=== PATIENT | female | born 1995 | race Caucasian/White ===

== ENCOUNTER 2018-04-03 13:19 | Emergency (ER) | payer BC ==
--- OUTSIDE RECORDS SUMMARY | 2018-04-03 13:35 | XMS REPORT | Continuity of Care Document ---
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 [address] PayID: [id number] JERRY Alaniz [id number] Advance Directives Description No Information Available Problems Description No Information Family History Description No Information Available Social History Type Date Description Comments Sex Unknown Allergies, Adverse Reactions, Alerts Date Description Reaction Status Severity Comments 03/01/2018 Sulfa Active 03/01/2018 Latex Active Medications Medication Date Status Form Strength Qnty SIG Indications Ordering Provider Escitalopram Active Tablets 20mg 30tabs 1 by mouth Kristie Oxalate 000 every day EBONY Castillo Topiramate Active Tablets 25mg 30tabs 1 tab by Kristie 000 mouth once EBONY Castillo daily Active Tablets Unknown 000 Mirena (52 MG) Active IUD 20mcg/24HR Inserted Unknown 000 October 2016 Immunizations CPT Code Status Date Vaccine Lot # [id number] Refused 03/01/2018 Influenza Virus Vaccine, Quadrivalent, 3 Yr > Quad , Preserv Free Vital Signs Date Vital Result Comment 03/29/2018 10:05am Weight 120.00 lb Weight 54.432 kg BP Systolic 102 mmHg BP Diastolic 68 mmHg Heart Rate 84 /min Body Temperature 98.4 F Respiratory Rate 16 /min 03/01/2018 9:07am Weight 117.00 lb Weight 53.071 kg BP Systolic 102 mmHg BP Diastolic 74 mmHg Heart Rate 80 /min Body Temperature 98.8 F Height 64 inches 5'4" BMI (Body Mass Index) 20.1 kg/m2 O2 % BldC Oximetry 98 % Results Test Date Facility Test Result H/L Range Note Laboratory test 03/29/2018 [facility] TSH (Thyroid < pending> finding [phone] Stim Horm) T3 Total <pending> Free T4 (Free Thyroxine) <pending> Vitamin D Total 25(Oh) <pending> Laboratory test finding 03/01/2018 In House Lab Strep Screen NEG (607)- - Procedures Description No Information Available Encounters Type Date Location Provider Dx Diagnosis Office Visit 03/01/2018 [facility] Kristie Jonathan, F43.10 Post- traumatic 9:00a CHEESEMAKER HELPER stress disorder, unspecified N83.209 Unspecified ovarian cyst, unspecified side J06.9 Acute upper respiratory infection, unspecified Plan of Treatment 03/29/2018 - Kristie Castillo, NPR53.83 Other fatigueRecommendations:Sleep hygiene -Sleep only long enough to feel rested and then get out of bed -Go to bed and get up at the same time every day -Do not try to force yourself to sleep. If you can't sleep, get out of bed and try again later. -Have coffee, tea, and other foods that have caffeine only in the morning -Avoidalcohol in the late afternoon, evening, and bedtime -Avoid smoking, especially in the evening -Keep your bedroom dark, cool, quiet, and free of reminders of work or other things that cause you stress -Solve problems you have before you go to bed -Exercise several days a week, but not right before bed -Avoid looking at phones or reading devices ("e-books") that give off light before bed. This can makeit harder to fall asleep. Other things that can improve sleep include: -Relaxation therapy, in whichyou focus on relaxing all the muscles in your body 1 by 1 - Working with a counselor or psychologist to deal with the problems that might be causing poor sleep -You should spend no more than 20 minutes lying in bed trying to fall asleep. -If you cannot fall asleep within 20 minutes, get up, go to another room and read or find another relaxing activity until you feel sleepy again. Activities such as eating, balancing your checkbook, doing housework, watching TV, or studying for a test, which "reward" you for staying awake, should be avoided. -When you start to feel sleepy, you can return to bed. If you cannot fall asleep in another 20 minutes, repeat the process. -Set an alarm clock and get up at the same time every day, including weekends. -Do not take a nap during the day.F43.10 Post-traumatic stress disorder, unspecifiedFollow up:1 month
--- NOTE | 2018-04-03 15:29 | UC ---
Headache HPI - HPI Summary HPI Summary: PT WITH KNOWN H/O MIGRAINES COMES IN WITH HEADACHE FOR 3 DAYS. NO RESPONSE TO TYLENOL, IBUPROFEN, IMITREX, FIORICET, INCREASED FLUID HYDRATION. PCP HAS REFERRED HER TO A HEADACHE SPECIALIST. SHE CAN NOT DESCRIBE THE PAIN. REPORTS PHOTOPHOBIA, PHONOPHOBIA AND NAUSEA. TAKES TOPAMAX DAILY FOR MIGRAINE PROPHYLAXIS WHICH USUALLY WORKS WELL. DENIES NUMBNESS, TINGLING, WEAKNESS. NO FEVER. NO NECK PAIN. - History Of Current Complaint Chief Complaint: UCHeadache Stated Complaint: HEADACHE Time Seen by Provider: 04/03/18 15:19 Hx Obtained From: Patient Hx Last Menstrual Period: iud Onset/Duration: Gradual Onset, Lasting Days, Still Present Onset Of Symptoms: Still Present Initially Headache Was: Moderate Currently Pain Is: Moderate Pain Intensity: 9 Pain Scale Used: 0-10 Numeric Timing: Constant Character: Unable To Describe Location of Headache: Frontal, Temporal Aggravating Factor(s): Bright Lights Allevating Factor(s): Nothing - Allergies/Home Medications Allergies/Adverse Reactions: Allergies Allergy/AdvReac Type Severity Reaction Status Date / Time latex Allergy Rash Verified 04/03/18 13:41 Sulfa (Sulfonamide Allergy anaph Verified 04/03/18 13:41 Antibiotics) Home Medications: Home Medications Escitalopram Oxalate [Lexapro 20 mg] 20 mg PO DAILY 04/03/18 [History Confirmed 04/03/18] Topamax 25 MG tab 50 mg PO DAILY 04/03/18 [History Confirmed 04/03/18] PMH/Surg Hx/FS Hx/Imm Hx Neurological History: Migraine Psychological History: Post Traumatic Stress Disorder - Surgical History Surgical History: Yes Surgery Procedure, Year, and Place: lapscopy pelvis area - Family History Known Family History: Positive: Non-Contributory - Social History Alcohol Use: None Substance Use Type: None Smoking Status (MU): Never Smoked Tobacco Review of Systems All Other Systems Reviewed And Are Negative: Yes Constitutional: Positive: Negative Eyes: Positive: Photophobia Respiratory: Positive: Negative Cardiovascular: Positive: Negative Gastrointestinal: Positive: Nausea Neurological: Positive: Headache Physical Exam Triage Information Reviewed: Yes Appearance: Well-Nourished, Pain Distress - MODERATE Vital Signs: Initial Vital Signs Temp 99.1 F 04/03/18 13:37 Pulse 78 04/03/18 13:37 Resp 18 04/03/18 13:37 BP 115/78 04/03/18 13:37 Pulse Ox 100 04/03/18 13:37 Vital Signs Reviewed: Yes Eyes: Positive: Conjunctiva Clear ENT: Positive: Hearing grossly normal Neck: Positive: Supple Respiratory: Positive: No respiratory distress, No accessory muscle use Cardiovascular: Positive: Pulses Normal Abdomen Description: Positive: Soft Musculoskeletal: Positive: No Edema Neurological: Positive: Alert Psychological: Positive: Age Appropriate Behavior Skin: Negative: Rashes Re-Evaluation - Re-Evaluation First Eval Re-Evaluation Time: 17:15 - SANTOS IMPROVED AFTER 1L NS, 8MG ZOFRAN, 30MG TORADOL AND 50MG BENADRYL. PT READY TO D/C HOME Change: Improved Headache Course/Dx - Differential Dx/Diagnosis Provider Diagnosis: Migraine Discharge - Sign-Out/Discharge Documenting (check all that apply): Patient Departure All imaging exams completed and their final reports reviewed: No Studies - Discharge Plan Condition: Stable Disposition: HOME Prescriptions: Ondansetron ODT TAB* [Zofran Odt TAB*] 4 mg PO Q8H PRN #12 tab.odt PRN Reason: Nausea/Vomiting Patient Education Materials: Migraine Headache (ED) Referrals: No Primary Care Phys,NOPCP [Primary Care Provider] - Additional Instructions: YOU FELT IMPROVED AFTER 1 L OF NORMAL SALINE, 8 MG ZOFRAN, 30 MG TORADOL, 50 MG BENADRYL. BE SURE TO STAY WELL-HYDRATED AND RESTED. FOLLOW-UP WITH YOUR HEADACHE SPECIALIST PLANNED. GO TO THE ED WITHOUT FAIL IF YOU HAVE RECURRENT SYMPTOMS. - Billing Disposition and Condition Condition: STABLE Disposition: Home
[2018-04-03] MEDS ORDERED: Ondansetron INJ* 2 MG/ML VIAL IV ONE (15:39)
[2018-04-03] MEDS ORDERED: diPHENhydraMINE IV* 50 MG/ML 1 ml VIAL (BENADRYL) IV ONE (15:39)
[2018-04-03] MEDS ORDERED: Ketorolac INJ* 30 MG/ML 1 ML VIAL IV PUSH ONE (15:40)
[2018-04-03] MEDS ORDERED: NS 0.9% 1000 ML* 1,000 ML IV SCH (15:45)
[2018-04-03 17:52] VITALS: BP 110/66
== END 2018-04-03 17:44 | disposition home or self-care (01) ==
LOC: UCEAST 13:19
DX: G43.909 Migraine, unspecified, not intractable, without status migrainosus (principal); Z88.2 Allergy status to sulfonamides; Z91.040 Latex allergy status
CPT/HCPCS: 96360; 96374; 96375; 99212; G0463; J1200; J1885; J2405

== ENCOUNTER 2018-06-13 15:30 | Emergency (ER) | payer BC ==
[2018-06-13 15:38] VITALS: BP 113/69
[2018-06-13] MEDS ORDERED: Albuterol 2.5 MG/3 ML NEB.SOL* (0.083%) INH ONE (16:03)
[2018-06-13] MEDS ORDERED: predniSONE TAB* 20 MG PO ONE (16:04)
--- NOTE | 2018-06-13 16:09 | UC ---
Shortness of Breath HPI - HPI Summary HPI Summary: 23-year-old woman comes in with a chief complaint of shortness breath. Patient reports she has allergies to wheat and 4 days ago is been exposed to eat and got hives all over she's been treating that with Benadryl which did help with the hives but she continued to be short of breath. She usually treats with albuterol and sometimes needs prednisone however her albuterol inhaler is empty. Shortness breath is worse with activity but with rest. She also reports some green sputum production. Feels her chest is heavy. Denies any history of poor embolus DVT. Denies any pedal edema. Reports a fever of 100.5 yesterday. - History of Current Complaint Chief Complaint: UCRespiratory Stated Complaint: RASH Time Seen by Provider: 06/13/18 15:55 Hx Last Menstrual Period: IUD - Allergy/Home Medications Allergies/Adverse Reactions: Allergies Allergy/AdvReac Type Severity Reaction Status Date / Time latex Allergy Rash Verified 06/13/18 15:38 Sulfa (Sulfonamide Allergy anaph Verified 06/13/18 15:38 Antibiotics) Home Medications: Home Medications Quetiapine Fumarate [Seroquel 50 mg tab] 25 mg PO DAILY 06/13/18 [History Confirmed 06/13/18] diphenhydrAMINE HCl [Benadryl Allergy 25 MG CAP] 25 mg PO Q8HR PRN 06/13/18 [ History Confirmed 06/13/18] PMH/Surg Hx/FS Hx/Imm Hx Previously Healthy: Yes Respiratory History: Asthma - Surgical History Surgical History: Yes Surgery Procedure, Year, and Place: lapscopy pelvis area - Family History Known Family History: Positive: Non-Contributory - Social History Alcohol Use: None Substance Use Type: None Smoking Status (MU): Never Smoked Tobacco Review of Systems All Other Systems Reviewed And Are Negative: Yes Constitutional: Positive: Fever Skin: Positive: Negative Eyes: Positive: Negative ENT: Negative: Sore Throat Respiratory: Positive: Shortness Of Breath Cardiovascular: Positive: Chest Pain Gastrointestinal: Positive: Negative Motor: Positive: Negative Neurovascular: Positive: Negative Musculoskeletal: Positive: Negative. Negative: Edema Neurological: Positive: Negative Psychological: Positive: Negative Is Patient Immunocompromised?: No Physical Exam Triage Information Reviewed: Yes Appearance: No Pain Distress, Well-Nourished, Ill-Appearing - mild Vital Signs: Initial Vital Signs Temp 98.7 F 06/13/18 15:32 Pulse 86 06/13/18 15:32 Resp 18 06/13/18 15:32 BP 113/69 06/13/18 15:32 Pulse Ox 100 06/13/18 15:32 Vital Signs Reviewed: Yes Eye Exam: Normal Eyes: Positive: Conjunctiva Clear ENT: Positive: TMs normal, Tonsillar swelling - 2+ b/l, Uvula midline Neck exam: Normal Neck: Positive: Supple Respiratory: Positive: Lungs clear, Normal breath sounds, No respiratory distress Cardiovascular: Positive: RRR Musculoskeletal Exam: Normal Musculoskeletal: Positive: Strength Intact, ROM Intact, No Edema Neurological Exam: Normal Neurological: Positive: Alert, Muscle Tone Normal Psychological Exam: Normal Psychological: Positive: Age Appropriate Behavior Skin Exam: Normal Shortness of Breath Dx - Course Course Of Treatment: Patient Name: FRANCIS ANTONIO Medical Record#: [id number]. Ordering Physician: Gallo Cunningham MD Acct.#: [id number]. : 1995 Age: 23 Sex: F Location: [facility]. Exam Date: 160 ADM Status: PRE ER. Order Information: CHEST PA LAT 2 VWS. Accession Number: [id number]. CPT: 10741. INDICATION: Shortness of breath x5 days. COMPARISON: None. TECHNIQUE: PA and lateral views of the chest were obtained. FINDINGS: The heart and mediastinum are normal in size and contour. The lungs are grossly clear. There is no evidence of large pleural effusion. There is a mild degree of curvature at the mid-level thoracic spine. There is no radiographic evidence of free air beneath the diaphragm. IMPRESSION: No radiographic evidence of acute cardiopulmonary disease. . <Electronically signed by Reginaldo Up MD in OV> 06/13/18 1492. I discussed the x-ray revealed port with the patient. After the albuterol nebulizer in the prednisone by mouth patient feels quite a bit better. She is able ambulate in the clinic. Because of the green sputum in the severity of her shortness of breath and in the face of an upper respiratory tract infection we'll treat with amoxicillin. We'll continue the prednisone and also sent a prescription for albuterol inhaler. Patient follow- up with her primary care doctor she'll get reevaluated sooner if worse or any questions concerns. - Differential Dx/Diagnosis Provider Diagnosis: Dyspnea, Allergic reaction, Bronchitis Discharge - Sign-Out/Discharge Documenting (check all that apply): Patient Departure All imaging exams completed and their final reports reviewed: Yes - Discharge Plan Condition: Stable Disposition: HOME Prescriptions: Albuterol HFA INHALER* [Ventolin HFA Inhaler*] 2 puff INH Q4H PRN #1 mdi PRN Reason: Wheezing Amoxicillin PO (*) [Amoxicillin 875 MG (*)] 875 mg PO BID #20 tab predniSONE TAB* [Deltasone 20 MG TAB*] 40 mg PO DAILY #8 tab Patient Education Materials: Acute Bronchitis (ED), Dyspnea (ED), General Allergic Reaction (ED) Referrals: [facility] [Outside] Additional Instructions: FOLLOW UP WITH YOUR DOCTOR IF NOT COMPLETELY IMPROVED. GET RECHECKED FOR ANY WORSENING OF YOUR CONDITION; SHORTNESS OF BREATH, FEVER, CHEST PAIN, YOU FEEL ILL OR QUESTIONS OR CONCERNS. - Billing Disposition and Condition Condition: STABLE Disposition: Home
--- OUTSIDE RECORDS SUMMARY | 2018-06-13 17:28 | XMS REPORT | Continuity of Care Document ---
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 [address] PayID: [id number] JERRY Alaniz [id number] Advance Directives Description No Information Available Problems Description No Information Family History Description No Information Available Social History Type Date Description Comments Sex Unknown Lives With grandparents Occupation Currently Working [employer] Tobacco Use Start: Unknown Never Smoked Cigarettes ETOH Use Denies alcohol use Recreational Drug Use Denies Drug Use Allergies, Adverse Reactions, Alerts Date Description Reaction Status Severity Comments 03/01/2018 Sulfa Active 03/01/2018 Latex Active Medications Medication Date Status Form Strength Qnty SIG Indications Ordering Provider Seroashley 05/03/ Active Tablets 25mg 30tab take 1 tablet Kristie 2019 s by mouth daily EBONY Castillo at bedtime for posttraumatic stress disorder Topiramate 04/02/ Active Tablets 50mg 30tab 1 by mouth G43.011 Kristie 2018 s before bed for EBONY Casitllo migraine prevention Rizatriptan 04/02/ Active Tablets 10mg 18tab dissolve 1 G43.011 Shawnti Benzoate 2018 Dispers s tablet in R. Storm, mouth at onset PROJECTOR BOOTH OPERATOR-C of migraine repeat in 2 hours if needed Fioricet 04/02/ Active Capsules 50-300-40 10cap one by mouth G43.011 Shawnti 2018 mg s every 8 hours R. Storm, if needed for PROJECTOR BOOTH OPERATOR-C migraine Escitalopram 00// Active Tablets 20mg 30tab 1 by mouth Kristie Oxalate 0000 s every day EBONY Castillo / Active Tablets Unknown 0000 Mirena (52 MG) / Active IUD 20mcg/24H Inserted October Unknown 2016 Topamax / Active Tablets 50mg Unknown 0000 Vitamin D3 / Active Chewtabs 400Unit Unknown 0000 Topiramate / Hx Tablets 25mg 30tab 1 tab by mouth Kristie 0000 - s once daily EBONY Castillo 2017 Immunizations CPT Code Status Date Vaccine Lot # [id number] Refused 03/01/2018 Influenza Virus Vaccine, Quadrivalent, 3 Yr > Quad , Preserv Free Vital Signs Date Vital Result Comment 06/07/2018 10:12am Weight 122.00 lb Weight 55.339 kg BP Systolic 100 mmHg BP Diastolic 60 mmHg Heart Rate 80 /min Body Temperature 97.3 F O2 % BldC Oximetry 99 % 05/03/2018 10:00am Weight 121.00 lb Weight 54.886 kg BP Systolic 118 mmHg BP Diastolic 82 mmHg Heart Rate 101 /min Body Temperature 98.0 F O2 % BldC Oximetry 99 % 04/02/2018 10:36am Weight 121.00 lb Weight 54.886 kg BP Systolic 112 mmHg BP Diastolic 68 mmHg Heart Rate 82 /min Body Temperature 97.3 F Respiratory Rate 16 /min O2 % BldC Oximetry 98 % 03/29/2018 10:05am Weight 120.00 lb Weight 54.432 [...] Date Facility Test Result H/L Range Note Comp Metabolic 04/15/2018 [facility] Sodium 139 mmol/ L N 135-145 Panel [phone] Potassium 3.6 mmol/L N 3.5-5.0 Chloride 107 mmol/L N 101-111 Co2 Carbon Dioxide 25 mmol/L N 22-32 Anion Gap 7 mmol/L N 2-11 Glucose 71 mg/dL N 70-100 Blood Urea Nitrogen 9 mg/dL N 6-24 Creatinine 0.67 mg/dL N 0.51-0.95 BUN/Creatinine Ratio 13.4 N 8-20 Calcium 9.4 mg/dL N 8.6-10.3 Total Protein 7.2 g/dL N 6.4-8.9 Albumin 4.5 g/dL N 3.2-5.2 Globulin 2.7 g/dL N 2-4 Albumin/Globulin Ratio 1.7 N 1-3 Total Bilirubin 0.50 mg/dL N 0.2-1.0 Alkaline Phosphatase 80 U/L N 34-104 Alt 6 U/L Low 7-52 Ast 16 U/L N 13-39 Egfr Non- 110.1 >60 Egfr 133.2 >60 1 Liver Function 04/15/2018 [facility] Direct 0.10 mg/ dL N 0.03-0.18 Panel [phone] Bilirubin Indirect Bilirubin 0.4 mg/dL N 0.3-1.0 CBC Auto Diff 03/29/2018 [facility] White Blood 4.7 10^3/uL N 3.5-10.8 [phone] Count Red Blood Count 4.61 10^6/uL N 4.00-5.40 Hemoglobin 14.6 g/dL N 12.0-16.0 Hematocrit 43 % N 35-47 Mean Corpuscular Volume 93 fL N 80-97 Mean Corpuscular Hemoglobin 32 pg High 27-31 Mean Corpuscular HGB Conc 34 g/dL N 31-36 Red Cell Distribution Width 12 % N 10.5-15 Platelet Count 225 10^3/uL N 150-450 Mean Platelet Volume 9.1 fL N 7.4-10.4 Abs Neutrophils 3.1 10^3/uL N 1.5-7.7 Abs Lymphocytes 1.2 10^3/uL N 1.0-4.8 Abs Monocytes 0.4 10^3/uL N 0-0.8 Abs Eosinophils 0.1 10^3/uL N 0-0.6 Abs Basophils 0 10^3/uL N 0-0.2 Abs Nucleated RBC 0 10^3/uL Granulocyte % 65.6 % Lymphocyte % 25.1 % Monocyte % 7.8 % Eosinophil % 1.4 % Basophil % 0.1 % Nucleated Red Blood Cells % 0.1 Comp Metabolic Panel 03/29/2018 [facility] Sodium 138 mmol/L N 135-145 [phone] Potassium 4.4 mmol/L N 3.5-5.0 Chloride 105 mmol/L N 101-111 Co2 Carbon Dioxide 28 mmol/L N 22-32 Anion Gap 5 mmol/L N 2-11 Glucose 100 mg/dL N 70-100 Blood Urea Nitrogen 14 mg/dL N 6-24 Creatinine 0.67 mg/dL N 0.51-0.95 BUN/Creatinine Ratio 20.9 High 8-20 Calcium 9.6 mg/dL N 8.6-10.3 Total Protein 7.3 g/dL N 6.4-8.9 Albumin 4.5 g/dL N 3.2-5.2 Globulin 2.8 g/dL N 2-4 Albumin/Globulin Ratio 1.6 N 1-3 Total Bilirubin 1.30 mg/dL High 0.2-1.0 Alkaline Phosphatase 98 U/L N 34-104 Alt 8 U/L N 7-52 Ast 17 U/L N 13-39 Egfr Non- 110.1 >60 Egfr 133.2 >60 2 Iron & Iron Binding 03/29/2018 [facility] Iron 159 g/dL N 50-212 Capacity [phone] Unsaturated Iron Binding 201 g/dL Total Iron Binding Capacity 360 g/dL N 250-450 Transferrin 257 mg/dL N 203-362 % Iron Saturation 44 % N 15-55 Laboratory test 03/29/2018 [facility] TSH (Thyroid 1.12 mcIU/mL N 0.34-5.60 3 finding [phone] Stim Horm) T3 Total 114 ng/dL N 87-178 4 Free T4 (Free Thyroxine) 0.61 ng/dL N 0.61-1.12 5 Vitamin D Total 25(Oh) 23.9 ng/mL N 20-50 6 Laboratory test finding 03/01/2018 In House Lab Strep Screen NEG (607)- - 1 Because ethnic data is not always readily available, this report includes an eGFR for both -Americans and non- Americans. The National Kidney Disease Education Program (NKDEP) does not endorse the use of the MDRD equation for patients that are not between the ages of 18 and 70, are , have extremes of body size, muscle mass, or nutritional status, or are non- or non-. According to the National Kidney Foundation, irrespective of diagnosis, the stage of the disease is based on the level of kidney function: Stage Description GFR(mL/min/1.73 m(2)) 1 Kidney damage with normal or decreased GFR 90 2 Kidney damage with mild decrease in GFR 60-89 3 Moderate decrease in GFR 30-59 4 Severe decrease in GFR 15-29 5 Kidney failure <15 (or dialysis) 2 Because ethnic data is not always readily available, this report includes an eGFR for both -Americans and non- Americans. The National Kidney Disease Education Program (NKDEP) does not endorse the use of the MDRD equation for patients that are not between the ages of 18 and 70, are , have extremes of body size, muscle mass, or nutritional status, or are non- or non-. According to the National Kidney Foundation, irrespective of diagnosis, the stage of the disease is based on the level of kidney function: Stage Description GFR(mL/min/1.73 m(2)) 1 Kidney damage with normal or decreased GFR 90 2 Kidney damage with mild decrease in GFR 60-89 3 Moderate decrease in GFR 30-59 4 Severe decrease in GFR 15-29 5 Kidney failure <15 (or dialysis) 3 [id number] 4 [id number] 5 [id number] Procedures Description No Information Available Encounters Type Date Location Provider Dx Diagnosis Office Visit 05/03/2018 Mildred Castillo F43.10 Post- traumatic 10:00a TILE LAYER DRAINAGE stress disorder, unspecified Office Visit 04/02/2018 Main Office Renee Elizabeth G43.011 Migraine without 10:30a Storm, PROJECTOR BOOTH OPERATOR-C aura, intractable, with status migrainosus Office Visit 03/29/2018 Mildred Castillo, R53.83 Other fatigue 10:00a TILE LAYER DRAINAGE F43.10 Post-traumatic stress disorder, unspecified Office Visit 03/01/2018 Mildred Flowers F43.10 Post-traumatic 9:00a EBONY Castillo stress disorder, unspecified N83.209 Unspecified ovarian cyst, unspecified side J06.9 Acute upper respiratory infection, unspecified Plan of Treatment Future Appointment(s):08/09/2018 10:00 am - Kristie Castillo NP at [facility]06/07/2018 - Kristie Castillo NPF43.10 Post-traumatic stress disorder, unspecifiedFollow up:.G43.011 Migraine without aura, intractable, with status migrainosus
== END 2018-06-13 17:20 | disposition home or self-care (01) ==
LOC: UCEAST 15:30
DX: R06.00 Dyspnea, unspecified (principal); T78.1XXA Other adverse food reactions, not elsewhere classified, initial encounter; J45.909 Unspecified asthma, uncomplicated; Z91.040 Latex allergy status; Z88.2 Allergy status to sulfonamides; X58.XXXA Exposure to other specified factors, initial encounter
CPT/HCPCS: 71046; 93005; 99212; G0463; J7512